=== PATIENT | male | born 1985 | race Caucasian/White ===

== ENCOUNTER 2018-09-24 12:33 | Emergency (ER) | payer BC, OTHER ==
[2018-09-24 12:44] VITALS: BP 117/67
[2018-09-24] MEDS ORDERED: Lidocaine 1% 10 ML MDV INJECT ONE (13:09)
[2018-09-24] MEDS ORDERED: Bupivacaine 0.5% 10 ML SDV INJECT ONE (13:09)
--- NOTE | 2018-09-24 13:49 | EDM.PDOC ---
ED HPI GENERAL MEDICAL PROBLEM - General Chief Complaint: Laceration Stated Complaint: RT HAND MIDDLE FINGER LAC Time Seen by Provider: 09/24/18 12:39 Source of Information: Reports: Patient, RN Notes Reviewed History Limitations: Reports: No Limitations - History of Present Illness INITIAL COMMENTS - FREE TEXT/NARRATIVE: Patient is a 32-year-old male who presents to the ED for the evaluation of a right middle finger injury. He states that he was at his shop about 11:00 today when his finger became entrapped between a metal pipe and a wood block. He did notice injury to his nailbed on this finger. He is able to move his finger appropriately. The patient is right-handed. The patient believes he is up-to-date on his tetanus booster. Right Finger-Middle Pain Score (Numeric/FACES): 8 - Related Data Allergies Allergy/AdvReac Type Severity Reaction Status Date / Time venom-honey bee Allergy Airway Verified 07/09/16 19:30 [bee venom (honey bee)] Tightness Home Meds: Home Meds . [No Known Home Meds] 09/24/18 [History] Past Medical History Cardiovascular History: Reports: Arrhythmia Other Cardiovascular History: Bradycardia - had Pacemaker placed 2011 Hematologic History: Reports: Bleeding Disorder - Past Surgical History HEENT Surgical History: Reports: Tonsillectomy Cardiovascular Surgical History: Reports: Pacer Other Cardiovascular Surgeries/Procedures: 2011-done by Dr. Nunez[hy [facility] Surgical History: Reports: Appendectomy Other Musculoskeletal Surgeries/Procedures:: 4 knee surgeries Social & Family History - Tobacco Use Smoking Status *Q: Never Smoker - Caffeine Use Caffeine Use: Reports: Coffee, Tea - Recreational Drug Use Recreational Drug Use: No - Living Situation & Occupation Living situation: Reports: , with Spouse, with Family Occupation: Employed ED ROS GENERAL - Review of Systems Review Of Systems: See Below Constitutional: Reports: No Symptoms HEENT: Reports: No Symptoms Respiratory: Reports: No Symptoms Cardiovascular: Reports: No Symptoms Endocrine: Reports: No Symptoms GI/Abdominal: Reports: No Symptoms : Reports: No Symptoms Musculoskeletal: Reports: Joint Pain (right middle finger pain) Skin: Reports: Wound (Approximately 1 cm linear laceration to inferior nail bed , just above the DIP of the right middle finger.) Neurological: Denies: Numbness, Tingling Psychiatric: Reports: No Symptoms Hematologic/Lymphatic: Reports: No Symptoms Immunologic: Reports: No Symptoms ED EXAM, SKIN/RASH Exam: See Below Text/Narrative:: exam limited to right upper extremity. Exam Limited By: No Limitations General Appearance: Alert, WD/WN, No Apparent Distress Respiratory/Chest: No Respiratory Distress, Lungs Clear, Normal Breath Sounds, No Accessory Muscle Use, Chest Non-Tender Cardiovascular: Normal Peripheral Pulses, Regular Rate, Rhythm, No Murmur Peripheral Pulses: 3+: Radial (L), Radial (R) Extremities: Other (Approximately 1 cm linear laceration to inferior nail bed, just above the DIP of the right middle finger.) Neurological: Alert, Oriented, Normal Cognition, No Motor/Sensory Deficits Psychiatric: Normal Affect, Normal Mood Skin: Warm, Dry, Normal Color, Wound/Incision (Approximately 1 cm linear laceration to inferior nail bed, just above the DIP of the right middle finger.) Location, Skin: Upper Extremity, Right ED SKIN PROCEDURES - Laceration/Wound Repair Right Digit - 3rd (Middle) Lac/Wound length In cm: 1 Appearance: Superficial, Linear, Mildly Contaminated Distal NVT: Neuro & Vascular Intact, No Tendon Injury Saline Irrigation (cc's): 1,000 (copious) Exploration/Debridement/Repair: Wound Explored, Explored to Base Closed with: Steri-Strips Sterile Dressing Applied: Provider Tetanus Status Addressed: Yes Complications: No Course - Vital Signs Last Recorded V/S: Last Vital Signs Temp 96.7 F 09/24/18 12:43 Pulse 71 09/24/18 12:43 Resp 20 09/24/18 12:43 BP 117/67 09/24/18 12:43 Pulse Ox 99 09/24/18 12:43 - Orders/Labs/Meds Meds: Medications Discontinued Medications Generic Name Dose Route Start Last Admin Trade Name Jaylon PRN Reason Stop Dose Admin Bupivacaine HCl 10 ml 09/24/18 13:09 09/24/18 13:15 Sensorcaine-Mpf 0.5% INJECT 09/24/18 13:10 10 ml ONETIME ONE Administration Lidocaine HCl 10 ml 09/24/18 13:09 09/24/18 13:15 Xylocaine 1% INJECT 09/24/18 13:10 10 ml ONETIME ONE Administration - Re-Assessments/Exams Free Text/Narrative Re-Assessment/Exam: 09/24/18 14:38 Patient presents to the ED for the evaluation of a right middle finger injury. He is wanting chest the finger cleaned, I did stress the fact that we should probably x-ray the finger make sure it is not broken as this would be an open fracture at this time. He declined x-ray at the ED states his is a dentist and he will have her x-ray it. He does not want sutures placed, and has opted for Steri-Strips and a finger splint for wound management. He will be directed to follow up in clinic and roughly 2-3 day time for re-evaluation. Departure - Departure Time of Disposition: 13:45 Disposition: Home, Self-Care 01 Condition: Fair Clinical Impression: Laceration of left middle finger Qualifiers: Encounter type: initial encounter Damage to nail status: with damage Foreign body presence: without foreign body Qualified Code(s): S61.313A - Laceration without foreign body of left middle finger with damage to nail, initial encounter - Discharge Information *PRESCRIPTION DRUG MONITORING PROGRAM REVIEWED*: No *COPY OF PRESCRIPTION DRUG MONITORING REPORT IN PATIENT RUTH: No Instructions: Laceration Care, Adult, [id number] Referrals: PCP,None [Primary Care Provider] - Forms: ED Department Discharge Additional Instructions: You have been evaluated in the ED for your left finger tip injury. Up-to-date, a clinical resource recommends that no antibiotic therapy is given at this time, and they recommend follow-up in 2-3 days' time at clinic for further recommendation and evaluation. Please keep this area clean and dry, you may cleanse with regular soap and water. No vigorous scrubbing. Please return to ED if your symptoms change or worsen.
== END 2018-09-24 14:18 | disposition home or self-care (01) ==
LOC: JD.ED 12:33
DX: S61.313A Laceration without foreign body of left middle finger with damage to nail, initial encounter (principal); W23.0XXA Caught, crushed, jammed, or pinched between moving objects, initial encounter; Z91.030 Bee allergy status
CPT/HCPCS: 99283; J2001; J3490; 99282